=== PATIENT | male | born 1965 | race Caucasian/White ===

== ENCOUNTER 2016-05-06 19:03 | Inpatient (IN) | payer OTHER ==
[~2016-05-06] VITALS: Ht 177.8 cm; Wt 112.7 kg
[~2016-05-06 19:03] MED LIST: ALPR1TAB3 PO; CAND4 PO; CIPR500T2 PO
[2016-05-06 19:05] VITALS: BP 117/72; PULSE 82; RESP 16; TEMP 98; O2SAT 99
[2016-05-06] MEDS ORDERED: CAND4TAB PO (19:30)
[2016-05-06] MEDS ORDERED: SODIUM CHLORIDE 0.9% FLUSH 5 ML FLUSH IVF PRN (19:30)
[2016-05-06] MEDS ORDERED: ONDANSETRON HCL 4 MG/2 ML VIAL IVP ONE (19:30)
[2016-05-06] MEDS ORDERED: MORPHINE SULFATE 4 MG/ML INJ IV PUSH ONE (19:30)
[2016-05-06] MEDS ORDERED: HYDR25TA5 PO (19:30)
[2016-05-06] MEDS ORDERED: ALPR2TAB3 PO (19:30)
--- NOTE | 2016-05-06 19:37 | PD ---
HPI Chief Complaint: Injury Time Seen by Provider: 19:27 Travel History International Travel<30 days: No Contact w/Intl Traveler<30days: No Traveled to known affect area: No History of Present Illness HPI 51-year-old male presents to the emergency room for evaluation of right wrist pain and swelling after fall about one hour prior to arrival. Patient states he was doing "box jumps" which requires him to jump straight up in the air onto a box when he fell backwards landing on an outstretched wrist. He reports immediate pain. Patient has not taken anything for his symptoms. He went to an urgent care center but they were closed. He denies any other injuries including elbow pain. Denies hitting his head or loss of consciousness. Reports paresthesias in the right hand. History of hypertension and anxiety. Patient is requesting to see Dr. Arian Grossman. Last ate a sandwich 6 hours prior to arrival. Last drank water while in the waiting room. Primary care physician is Dr. Radha Stovall. [facility] Past Medical History Diminished Hearing: No Hypertension: Yes Insomnia: Yes Immunizations Current: Yes Past Surgical History Genitourinary Surgery: Yes (testicular torsion repair) Social History Alcohol Use: No Tobacco Use: No Substance Use: No Allergies-Medications (Allergen,Severity, Reaction): Coded Allergies: No Known Allergies (Verified , 05/06/16) Reported Meds & Prescriptions Reported Meds & Active Scripts Active Reported Hydrochlorothiazide 25 Mg Tab 25 Mg PO DAILY Candesartan (Candesartan Cilexetil) 4 Mg Tab 4 Mg PO DAILY Alprazolam 2 Mg Tab 2 Mg PO HS PRN Review of Systems Except as stated in HPI: all other systems reviewed are Neg Physical Exam Narrative GENERAL: Well-nourished, well-developed male in no acute distress. Afebrile. Ambulatory. SKIN: Warm and dry. Mild ecchymosis over the right third dorsal MCP joint. HEAD: Normocephalic. EYES: No scleral icterus. No injection or drainage. NECK: Supple, trachea midline. No JVD or lymphadenopathy. CARDIOVASCULAR: Regular rate and rhythm without murmurs, gallops, or rubs. RESPIRATORY: Breath sounds equal bilaterally. No accessory muscle use. EXTREMITY: Right wrist externally tender to palpation over the radial aspect. Mild tenderness over the volar, ulnar aspect. Limited range of motion secondary to pain. Moderate edema especially over the radial aspect. 2+ radial pulse and less than 2 second capillary refill distally. Patient can move his fingers reports significant pain with range of motion. Data Data Last Documented VS Vital Signs Date Time Temp Pulse Resp B/P Pulse Ox O2 Delivery O2 Flow Rate FiO2 05/06/16 19:21 Room Air 05/06/16 19:05 98.0 82 16 117/72 99 Orders Complete Blood Count With Diff (05/06/16 19:24) Comprehensive Metabolic Panel (05/06/16 19:24) Prothrombin Time / Inr (Pt) (05/06/16 19:24) Act Partial Throm Time (Ptt) (05/06/16 19:24) Iv Access Insert/Monitor (05/06/16 19:24) Morphine Inj (Morphine Inj) (05/06/16 19:30) Ondansetron Inj (Zofran Inj) (05/06/16 19:30) Sodium Chloride 0.9% Flush (Ns Flush) (05/06/16 19:30) Wrist, Complete (Atc6klb) (05/06/16 ) Hand, Limited (2vws) (05/06/16 ) Hydromorphone Pf Inj (Dilaudid Pf Inj) (05/06/16 20:45) Consult Orthopedic (05/06/16 ) Splint Or Brace Apply/Monitor (05/06/16 20:43) (Hub Use Only)Inp Phy Cons/Ref (05/06/16 ) Admit To Inpatient (05/06/16 ) Vital Signs (Adult) Q4H (05/06/16 20:51) Activity Oob With Assistance (05/06/16 20:51) Diet Npo (05/07/16 Breakfast) Sodium Chlor 0.9% 1000 Ml Inj (Ns 1000 M (05/06/16 20:51) Sodium Chloride 0.9% Flush (Ns Flush) (05/06/16 21:00) Sodium Chloride 0.9% Flush (Ns Flush) (05/06/16 21:00) Ondansetron Inj (Zofran Inj) (05/06/16 21:00) Bisacodyl Supp (Dulcolax Supp) (05/06/16 21:00) Comprehensive Metabolic Panel (05/07/16 06:00) Complete Blood Count With Diff (05/07/16 06:00) Scd Bilateral/Knee High OSCAR.BID (05/06/16 20:51) Hill Bilateral/Knee High OSCAR.QSHIFT (05/06/16 20:51) Acetaminophen (Tylenol) (05/06/16 21:00) Acetamin-Hydrocod 325-5 Mg ([place] 5-325 (05/06/16 21:00) Morphine Inj (Morphine Inj) (05/06/16 21:00) Inpatient Certification (05/06/16 ) Alprazolam (Xanax) (05/06/16 21:00) Hydrochlorothiazide (Hydrodiuril) (05/07/16 09:00) Losartan (Cozaar) (05/07/16 09:00) Admit Order (Ed Use Only) (05/06/16 20:57) Labs Laboratory Tests Test 05/06/16 20:10 White Blood Count 9.6 TH/MM3 Red Blood Count 5.08 MIL/MM3 Hemoglobin 15.8 GM/DL Hematocrit 44.3 % Mean Corpuscular Volume 87.2 FL Mean Corpuscular Hemoglobin 31.2 PG Mean Corpuscular Hemoglobin 35.8 % Concent Red Cell Distribution Width 12.9 % Platelet Count 265 TH/MM3 Mean Platelet Volume 8.3 FL Neutrophils (%) (Auto) 58.4 % Lymphocytes (%) (Auto) 27.3 % Monocytes (%) (Auto) 10.3 % Eosinophils (%) (Auto) 2.6 % Basophils (%) (Auto) 1.4 % Neutrophils # (Auto) 5.6 TH/MM3 Lymphocytes # (Auto) 2.6 TH/MM3 Monocytes # (Auto) 1.0 TH/MM3 Eosinophils # (Auto) 0.3 TH/MM3 Basophils # (Auto) 0.1 TH/MM3 CBC Comment DIFF FINAL Differential Comment Prothrombin Time 10.5 SEC Prothromb Time International 1.0 RATIO Ratio Activated Partial 20.5 SEC Thromboplast Time Sodium Level 135 MEQ/L Potassium Level 3.3 MEQ/L Chloride Level 100 MEQ/L Carbon Dioxide Level 26.5 MEQ/L Anion Gap 9 MEQ/L Blood Urea Nitrogen 19 MG/DL Creatinine 1.71 MG/DL Estimat Glomerular Filtration 42 ML/MIN Rate Random Glucose 109 MG/DL Calcium Level 9.3 MG/DL Total Bilirubin 1.6 MG/DL Aspartate Amino Transf 27 U/L (AST/SGOT) Alanine Aminotransferase 28 U/L (ALT/SGPT) Alkaline Phosphatase 50 U/L Total Protein 7.8 GM/DL Albumin 4.6 GM/DL [facility] Medical Decision Making Medical Screen Exam Complete: Yes Emergency Medical Condition: Yes Medical Record Reviewed: Yes Differential Diagnosis Fracture versus sprain versus strain versus dislocation Narrative Course 51-year-old male presents to the emergency room for evaluation of right wrist pain and swelling after falling backwards onto an outstretched arm just prior to arrival. Patient denies any other injuries. Physical exam reveals tenderness to palpation, mild edema over the right radial aspect. Neurovascularly intact with 2+ radial pulse and less than 2 second capillary refill distally. Limited range motion of the right wrist and hand secondary to pain. Patient can abduct his fingers and thumb and oppose his thumb but reports significant pain. Vital signs stable. IV access established and patient given morphine and Zofran for pain. States morphine mildly improved his symptoms. CBC is unremarkable. CMP shows evidence of dehydration. X-ray of the hand is negative. X-ray of the right wrist shows a comminuted distal radial fracture with joint involvement. I spoke to the orthopedic surgeon on- call, Dr. Ramon, who recommends admission to the medical service with consultation to him for surgical intervention tomorrow. Patient is to be nothing by mouth at midnight. Patient is agreeable. I spoke to the [facility] physician vice president investor relations, Dr. Cespedes, who agrees to admit this patient to her service. Physician Communication Physician Communication I spoke to the orthopedic surgeon on-call, Dr. Ramon, who recommends admission to medical service for surgical intervention tomorrow. I spoke to the hospitalist on-call, Dr. Cespedes, who agrees to accept this patient to her service. Diagnosis Primary Impression: Right wrist fracture Qualified Code: S62.101A - Right wrist fracture, closed, initial encounter Admitting Information Admitting Physician Requests: Admit Condition: Stable Genesis Huizar May 06, 2016 19:37
[2016-05-06 20:15] VITALS: BP 170/85; PULSE 89; RESP 20; TEMP 98.1; O2SAT 98
[2016-05-06] MEDS ORDERED: HYDROmorphone HCL PF 1 MG/ML VIAL IV PUSH ONE (20:45)
[2016-05-06 20:48] LABS: AUTOMATED NEUTROPHIL # 5.6 TH/MM3 (1.8-7.7); BASOPHIL # 0.1 TH/MM3 (0-0.2); BASOPHIL % 1.4 % (0.0-2.0); EOSINOPHIL # 0.3 TH/MM3 (0-0.4); EOSINOPHIL % 2.6 % (0.0-4.0); HEMATOCRIT 44.3 % (39.0-51.0); HEMO FLAGS DIFF FINAL; LYMPH % 27.3 % (9.0-44.0); LYMPHOCYTE # 2.6 TH/MM3 (1.0-4.8); MEAN CELL VOLUME 87.2 FL (80.0-100.0); MEAN CORPUSCULAR HEMOGLOBIN 31.2 PG (27.0-34.0); MEAN CORPUSCULAR HGB CONC 35.8 % (32.0-36.0); MONO % 10.3 % (0.0-8.0); NEUT % 58.4 % (16.0-70.0); PLATELET COUNT 265 TH/MM3 (150-450); RED BLOOD COUNT 5.08 MIL/MM3 (4.50-5.90); RED CELL DISTRIBUTION WIDTH 12.9 % (11.6-17.2); WHITE BLOOD COUNT 9.6 TH/MM3 (4.0-11.0)
--- NOTE | 2016-05-06 20:52 | HHI.HP ---
[facility] Primary Care Physician Kacey Mendes M.D. Admission Diagnosis Diagnoses: (1) Right wrist fracture Diagnosis: Principal (2) HTN (hypertension) Diagnosis: Principal (3) Anxiety Diagnosis: Principal (4) JONATHAN (acute kidney injury) Diagnosis: Principal Travel History International Travel<30 Days: No Contact w/Intl Traveler <30 Da: No Traveled to Known Affected Are: No History of Present Illness This is a 51-year-old male with PMH of HTN and Anxiety who presents to ER with complaints of right hand pain and swelling after a fall while doing exercise. Was doing CrossFit exercises and jumped onto a box when he fell onto outstretched arm. Denies LOC or head trauma. On arrival, BP 117/72, HR 82, O2 sat 99% on RA, Afebrile. CBC unremarkable. Creatinine 1.71, previously 1.3 on 01/23/05. K+ 3.3. Hand X-ray w/ distal radius fx. Dr. Ramon consulted by ER physician, plan for surgical intervention. Review of Systems Other ROS: 14 point review of systems otherwise negative. Past Family Social History Past Medical History PMH: HTN and Anxiety Past Surgical History PAST SURGICAL HISTORY: Testicular Torsion Repair Allergies: Coded Allergies: No Known Allergies (Verified , 05/06/16) Family History PAST FAMILY HISTORY: Reviewed. No h/o DM or CAD Social History PAST SOCIAL HISTORY: Negative for alcohol, tobacco or drugs. Physical Exam Vital Signs Vital Signs Date Time Temp Pulse Resp B/P Pulse Ox O2 Delivery O2 Flow Rate FiO2 05/06/16 19:21 Room Air 05/06/16 19:05 98.0 82 16 117/72 99 Physical Exam PE: GENERAL: Middle-aged white male in no acute distress. HEENT: PERRLA, EOMI. No scleral icterus or conjunctival pallor. No lid lag or facial droop. CARDIOVASCULAR: Regular rate and rhythm. No obvious murmurs to auscultation. No chest tenderness to palpation. RESPIRATORY: No obvious rhonchi or wheezing. Clear to auscultation. Breath sounds equal bilaterally. GASTROINTESTINAL: Abdomen soft, non-tender, nondistended. BS normal. MUSCULOSKELETAL: Right wrist w/ decreased ROM due to injury. Pulses intact. NEUROLOGICAL: Awake, alert and oriented x4. No focal neurologic deficits. Moving both upper and lower extremities spontaneously. Laboratory Laboratory Tests Test 05/06/16 20:10 White Blood Count 9.6 Red Blood Count 5.08 Hemoglobin 15.8 Hematocrit 44.3 Mean Corpuscular Volume 87.2 Mean Corpuscular Hemoglobin 31.2 Mean Corpuscular Hemoglobin 35.8 Concent Red Cell Distribution Width 12.9 Platelet Count 265 Mean Platelet Volume 8.3 Neutrophils (%) (Auto) 58.4 Lymphocytes (%) (Auto) 27.3 Monocytes (%) (Auto) 10.3 Eosinophils (%) (Auto) 2.6 Basophils (%) (Auto) 1.4 Neutrophils # (Auto) 5.6 Lymphocytes # (Auto) 2.6 Monocytes # (Auto) 1.0 Eosinophils # (Auto) 0.3 Basophils # (Auto) 0.1 CBC Comment DIFF FINAL Differential Comment Result Diagram: 05/06/162009 Assessment and Plan Problem List: (1) Right wrist fracture ICD Code: S62.101A Status: Acute (2) Anxiety ICD Code: F41.9 Status: Acute (3) JONATHAN (acute kidney injury) ICD Code: N17.9 Status: Acute (4) HTN (hypertension) ICD Code: I10 Status: Acute Assessment and Plan A/P: 1. Right Wrist Fx: s/p mechanical fall, no head trauma or LOC. X-ray w/ distal radius fracture, images reviewed by me. Dr. Ramon consulted by ER physician, plan for surgical intervention in am. NPO, IVF, analgesics/ antiemetics. 2. Anxiety: Severe. Resume home Xanax. 3. JONATHAN: Creatinine 1.71, previously 1.3 on 01/23/05, presumably new but no labs since 2004. Check U/a, IVF, repeat labs in am. 4. HTN: Controlled. BP 120's. Will monitor. 5. DVT Prophylaxis: Anticoagulation post op per Ortho. 6. Social work for d/c planning as needed. 7. Case discussed w/ ER physician at length. Physician Certification 2 Midnight Certification Type: Admission for Inpatient Services Order for Inpatient Services The services are ordered in accordance with Medicare regulations or non- Medicare payer requirements, as applicable. In the case of services not specified as inpatient-only, they are appropriately provided as inpatient services in accordance with the 2-midnight benchmark. Estimated LOS (days): 2 days is the estimated time the patient will need to remain in the hospital, assuming treatment plan goals are met and no additional complications. Post-Hospital Plan: Not yet determined Problem Qualifiers (1) Right wrist fracture: Qualified Code: S62.101A - Right wrist fracture, closed, initial encounter Keila Cespedes MD May 06, 2016 20:52
[2016-05-06 20:55] LABS: PROTHROMBIN TIME - PATIENT 10.5 SEC (9.8-11.6)
[2016-05-06 20:59] LABS: APTT (PATIENT) 20.5 SEC (24.3-30.1)
[2016-05-06] MEDS ORDERED: ACETAMINOPHEN 325 MG TAB PO PRN (21:00)
[2016-05-06] MEDS ORDERED: ONDANSETRON HCL 4 MG/2 ML VIAL IVP PRN (21:00)
[2016-05-06] MEDS ORDERED: SODIUM CHLORIDE 0.9% FLUSH 5 ML FLUSH FLUSH PRN (21:00)
[2016-05-06] MEDS ORDERED: ACETAMINOPHEN/HYDROcodone 325 MG/5 MG TAB PO PRN (21:00)
[2016-05-06] MEDS ORDERED: BISACODYL 10 MG SUPP PR PRN (21:00)
[2016-05-06 21:02] LABS: ANION GAP 9 MEQ/L (5-15); AST (GOT) 27 U/L (15-37); BICARBONATE 26.5 MEQ/L (21.0-32.0); BLOOD UREA NITROGEN 19 MG/DL (7-18); CHLORIDE 100 MEQ/L (98-107); GLOMERULAR FILTRATION RATE 42 ML/MIN (>89); POTASSIUM 3.3 MEQ/L (3.5-5.1); SODIUM (NA) 135 MEQ/L (136-145)
[2016-05-06 21:05] LABS: ALKALINE PHOSPHATASE 50 U/L (45-117); ALT (GPT) 28 U/L (12-78); TOTAL BILIRUBIN ADULT 1.6 MG/DL (0.2-1.0)
[2016-05-06] MEDS: SODIUM CHLOR 0.9% 1000 ML INJ 1,000 ML IV SCH (21:11)
[2016-05-06] MEDS: SODIUM CHLORIDE 0.9% FLUSH 5 ML FLUSH FLUSH SCH (21:11)
--- NOTE | 2016-05-06 21:31 | RADRPT ---
EXAM DATE/TIME: 05/06/2016 20:08 [facility] COMPARISON: No previous studies available for comparison. INDICATIONS : Right wrist pain MEDICAL HISTORY : None. SURGICAL HISTORY : None. ENCOUNTER: Initial ACUITY: 1 day PAIN SCORE: 10/10 LOCATION: Right wrist FINDINGS: There is a comminuted intra-articular fracture of the distal radius with some foreshortening. Distal ulna intact. No dislocation. CONCLUSION: 1. Comminuted intra-articular fracture distal radius with foreshortening. Monico Martinez MD on May 06, 2016 at 21:29 Board Certified Radiologist. This report was verified electronically.
--- NOTE | 2016-05-06 21:32 | RADRPT ---
EXAM DATE/TIME: 05/06/2016 20:10 [facility] COMPARISON: No previous studies available for comparison. INDICATIONS : Right wrist pain MEDICAL HISTORY : None. SURGICAL HISTORY : None. ENCOUNTER: Initial ACUITY: 1 day PAIN SCORE: 10/10 LOCATION: Right upper extremity FINDINGS: There is a comminuted intra-articular fracture of the distal radius with foreshortening. No dislocati on at the wrist. No acute fracture of the right hand. CONCLUSION: 1. Distal radius fracture. No right hand fracture identified. Monico Martinez MD on May 06, 2016 at 21:30 Board Certified Radiologist. This report was verified electronically.
[2016-05-06] MEDS: LACTATED RINGER'S 1000 ML IV SCH (23:00)
[2016-05-06] MEDS: SODIUM CHLORID 0.9% 500 ML IV SCH (23:00)
[2016-05-06] MEDS ORDERED: INSULIN HUMAN REGULAR 1,000 UNITS/10 ML VIAL SQ PRN (23:00)
[2016-05-06] MEDS ORDERED: METOPROLOL TARTRATE 25 MG TAB PO PRN (23:00)
[2016-05-06] MEDS ORDERED: LOSARTAN 25 MG TAB PO ONE (23:15)
[2016-05-06] MEDS ORDERED: HYDROCHLOROTHIAZIDE 25 MG TAB PO ONE (23:15)
[2016-05-06] MEDS: ALPRAZolam 1 MG TAB PO PRN (23:20)
[2016-05-07] VITALS (7 sets, daily range): BP systolic 129–155; BP diastolic 83–95; PULSE 71–96; RESP 17–18; TEMP 95.8–98.7; O2SAT 96–99
[2016-05-07] MEDS: MORPHINE SULFATE 4 MG/ML INJ IV PRN ×4 (01:18→11:03)
[2016-05-07] MEDS: SODIUM CHLOR 0.9% 1000 ML INJ 1,000 ML IV SCH ×2 (05:28→15:49)
[2016-05-07 08:03] LABS: AUTOMATED NEUTROPHIL # 8.4 TH/MM3 (1.8-7.7); BASOPHIL # 0.1 TH/MM3 (0-0.2); BASOPHIL % 0.7 % (0.0-2.0); EOSINOPHIL # 0.2 TH/MM3 (0-0.4); EOSINOPHIL % 1.6 % (0.0-4.0); HEMO FLAGS DIFF FINAL; LYMPH % 10.7 % (9.0-44.0); LYMPHOCYTE # 1.2 TH/MM3 (1.0-4.8); MEAN CELL VOLUME 86.9 FL (80.0-100.0); MEAN CORPUSCULAR HEMOGLOBIN 31.1 PG (27.0-34.0); MEAN CORPUSCULAR HGB CONC 35.8 % (32.0-36.0); MONO % 9.9 % (0.0-8.0); NEUT % 77.1 % (16.0-70.0); PLATELET COUNT 231 TH/MM3 (150-450); RED BLOOD COUNT 4.61 MIL/MM3 (4.50-5.90); WHITE BLOOD COUNT 10.9 TH/MM3 (4.0-11.0)
[2016-05-07] MEDS: SODIUM CHLORID 0.9% 500 ML IV SCH (08:37)
[2016-05-07] MEDS: SODIUM CHLORIDE 0.9% FLUSH 5 ML FLUSH FLUSH SCH (08:37)
[2016-05-07 08:39] LABS: ALKALINE PHOSPHATASE 47 U/L (45-117); ALT (GPT) 26 U/L (12-78); ANION GAP 9 MEQ/L (5-15); AST (GOT) 20 U/L (15-37); BICARBONATE 23.9 MEQ/L (21.0-32.0); BLOOD UREA NITROGEN 20 MG/DL (7-18); CHLORIDE 104 MEQ/L (98-107); GLOMERULAR FILTRATION RATE 55 ML/MIN (>89); POTASSIUM 3.3 MEQ/L (3.5-5.1); SODIUM (NA) 137 MEQ/L (136-145); TOTAL BILIRUBIN ADULT 1.2 MG/DL (0.2-1.0)
[2016-05-07] MEDS ORDERED: LOSARTAN 25 MG TAB PO SCH ×2 (09:00→21:00)
[2016-05-07] MEDS ORDERED: HYDROCHLOROTHIAZIDE 25 MG TAB PO SCH ×2 (09:00→21:00)
--- NOTE | 2016-05-07 10:30 | MB ---
cc: ELIANA FLEMING M.D. DATE OF CONSULTATION: May 07, 2016 REASON FOR CONSULTATION Right wrist fracture. HISTORY OF PRESENT ILLNESS The patient is a 51-year-old man who has history of hypertension and anxiety. The patient was doing some cross-fit exercises where he was doing a box jump, he missed the box jump, he was doing this with his son. He landed onto the bilateral wrist with the right wrist being much worse. Initially when he first came into the hospital he was only complaining about right wrist pain but now he is having some left wrist pain as well. He does have some numbness about the fingers of the right hand which is on and off and mostly about the long finger. The patient was found to have a significantly displaced distal radius fracture on the right side. He was splinted and admitted to the hospital. He denies any problems with the wrist in the past. He describes the pain was being quite significant. PAST MEDICAL HISTORY The patient's medical history is as above. PAST SURGICAL HISTORY Testicular torsion repair. ALLERGIES NO KNOWN DRUG ALLERGIES. FAMILY HISTORY Noncontributory. SOCIAL HISTORY The patient does not drink alcohol or smoke. 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 ___ specific questions surrounding that. PHYSICAL EXAMINATION VITAL SIGNS: The patient's temperature is 98.0, pulse is 82, respirations 16, blood pressure 117/72. GENERAL: He is awake, alert and oriented x3. He has normal affect, insight and judgment. He is in no significant amount of distress. HEENT/NECK: Head is atraumatic. Neck is supple. Oropharynx is moist. Extraocular muscles are intact. HEART: Regular rate and rhythm. LUNGS: Clear to auscultation bilaterally. ABDOMEN: Soft, nontender, nondistended. EXTREMITIES: The right upper extremity is currently splinted. He has some swelling about the fingertips, although he can move the fingers at least moderately well. He does have some numbness in the median nerve distribution, mostly around the long finger but a little bit about the index finger as well. There is no bloody drainage on the splint. Examination of the left wrist shows skin is intact with no wounds. I did see significant swelling. There is no tenderness about the distal radius, but he has quite a bit of tenderness about the mid carpus region. His range of motion of the wrist was mildly decreased passively and there was sensation distally. Examination of bilateral lower extremities shows good active motion, neurovascularly intact. LABORATORY STUDIES Reviewed shows white cell count of 9.6, hematocrit is 44.3, platelets is 265. Coagulation studies INR is 1.0. Chemistries creatinine is 1.37, down from 1.71. X-RAYS Imaging and report is reviewed from the hand and the wrist on the right side, shows comminuted interarticular distal radius fracture with impaction, displacement and angulation, fracture is fairly distal. No x-rays of the left wrist were obtained. IMPRESSION 1. Right distal radius fracture, interarticular displaced, angulated, comminuted and impacted. 2. Right hand carpal tunnel syndrome, acute. 3. Left wrist sprain, rule out fractures. As for the left wrist is concerned, I have asked the nurse to order an x-ray of the wrist so we can review this. As for the right wrist, is a highly complex situation. The patient has severe injury to the distal radius. Nonoperative management likely will lead to significant dysfunction of the wrist due to deformity and interarticular component. The patient does have significant chance of developing arthritic change, weakness of the wrist and long-term complications of the extremities. We did discuss operative management for this condition to include open reduction, internal fixation and/or external fixation given the distal nature of it. We talked about future surgical necessity of external fixation is performed. Additionally, the patient does have evidence of acute carpal tunnel syndrome. I would recommend an acute carpal tunnel release and there are risks associated with injury to the median nerve with this. He understands the general risks of surgery to include but not limited to injury to nerves, blood vessels, bleeding, infection, failure of hardware, need for operation, continued pain, loss of range of motion of the associated joints, DVT, pulmonary embolus, pneumonia and . All questions have been answered. MD ADRYAN Cristina/FLY /9:29 AM /10:09 AM
--- NOTE | 2016-05-07 11:47 | EKG ---
Date Performed: 05/07/2016 Time Performed: 09:48:53 PTAGE: 51 years EKG: Sinus rhythm POSSIBLE LEFT VENTRICULAR HYPERTROPHY NONSPECIFIC T-WAVE ABNORMALITY ABNORMAL ECG NO PREVIOUS TRACING DOCTOR: Reanna Talavera Interpretating Date/Time 05/07/2016 11:45:40
[2016-05-07] MEDS ORDERED: BUPIVACAINE HCL PF 0.25% 30 ML VIAL ONE (12:08)
[2016-05-07] MEDS ORDERED: LIDOCAINE HCL 1% 50 ML VIAL ONE (12:08)
[2016-05-07] MEDS ORDERED: GENTAMICIN SULFATE 80 MG/2 ML VIAL ONE (12:09)
[2016-05-07] MEDS ORDERED: POTASSIUM CHLORIDE 10 MEQ CONTROLLED RELEASE TAB PO ONE (12:30)
[2016-05-07] MEDS ORDERED: fentaNYL CITRATE 250 MCG/5 ML AMP ONE (12:51)
[2016-05-07] MEDS ORDERED: ACETAMINOPHEN 1000 MG/100 ML VIAL IV ONE (12:51)
[2016-05-07] MEDS ORDERED: HYDROmorphone HCL PF 2 MG/ML VIAL ONE (12:51)
[2016-05-07] MEDS ORDERED: VANCOMYCIN HCL 1000 MG VIAL ONE (12:57)
--- NOTE | 2016-05-07 13:12 | RADRPT ---
EXAM DATE/TIME: 05/07/2016 09:27 [facility] COMPARISON: No previous studies available for comparison. INDICATIONS : Pain from fall backwards. MEDICAL HISTORY : None. SURGICAL HISTORY : None. ENCOUNTER: Initial ACUITY: 2 days PAIN SCORE: 5/10 LOCATION: Left wrist. FINDINGS: Three view examination of the left wrist demonstrates no soft tissue swelling, dislocation, or fractu re. Tiny chip fracture along the scaphoid of indeterminate age The carpal bones are in normal alignme nt. The joint spaces are maintained. Bony mineralization is normal. CONCLUSION: Distal radius and ulna are intact. Chip fracture of the scaphoid of indeterminate age. Ivan Jacome MD on May 07, 2016 at 13:09 Board Certified Radiologist. This report was verified electronically.
[2016-05-07] MEDS ORDERED: BUPIVACAINE/EPINEPHRINE 0.25% PF 30 ML VIAL ONE (13:23)
--- NOTE | 2016-05-07 14:10 | PD.OP ---
cc: Pavel Ramon MD Operative Report Date of Surgery: May 07, 2016 Preoperative Diagnosis: Right wrist distal radius fracture, intra-articular three-part displaced. Right hand acute carpal tunnel syndrome. Left nondisplaced scaphoid fracture. Postoperative Diagnosis: Same Procedure: Right distal radius fracture open reduction and internal fixation of three-part intra-articular fracture. Right hand open carpal tunnel release through separate incision. Nonoperative management of left scaphoid fracture. Surgeon: Pavel Ramon Vault Clerk(s): JUSTINA Moss The surgical procedure was assisted by my Advanced Registered Nurse Practitioner. My CAREER COORDINATOR presence was necessary throughout this case for the manipulation and positioning of the surgical extremity. My CAREER COORDINATOR was assisting me throughout the duration of this procedure. The skill set of an Advance Registered Nurse Practitioner was medically necessary to complete this procedure. During the surgical case, the apprentice instrument technician was working at the back table and the Advance Registered Nurse Practitioner was directly assisting me. Operation and Findings: Prior to the patient being brought back to the operative theater I reviewed the x-rays of the left wrist which shows a nondisplaced transverse scaphoid fracture. The radiologist read this as a chip fracture. However, I do believe there is a transverse nondisplaced component to this. I reviewed the x-rays with the patient. We are going to move forward with nonoperative management. The patient will be splinted as soon as he is in the recovery room. Tourniquet time: 29 minutes at 250 mmHg of pressure Estimated blood loss: 40 cc The patient received intravenous Ancef and vancomycin. After the appropriate anesthesia was administered, the patient's arm was prepped and draped in the usual sterile fashion. Local anesthetic was given, and the arm was exsanguinated. The tourniquet was raised to 250 mmHg of pressure. We made a standard incision over the volar aspect of the forearm. We then dissected through the flexor carpi radialis sub- sheath. The pronator quadratus was reflected. We now visualized the distal radius fracture very well. The fracture was anatomically reduced both visually and via fluoroscopy. We provisionally held the fracture reduced and then applied a Synthes precontoured distal radius plate into the appropriate position. The plate was secured to the distal radius first with the sliding screw hole. This was then followed by locking screws distally and proximally. We took final fluoroscopic imaging of the wrist. We found no intra-articular penetration of the screws. The patient had full range of motion of the wrist with no crepitus. We made a separate incision on the volar aspect of the hand. Dissected down to the deep transverse carpal ligament. We incised the ligament first in the mid aspect and then distally and then proximally. We confirmed the entire ligament was transected. We saw a small amount of hematoma at the proximal end of the carpal tunnel along the course of the median nerve. The median nerve was intact. The tourniquet was released and hemostasis was achieved. The patient had a 2+ radial pulse. We irrigated the incisions thoroughly. We then closed skin with 2-0 Vicryl followed by 3-0 nylon. The arm was dressed and a volar splint was applied. The postoperative plan is to start early range of motion of the wrist. Pavel Ramon MD May 07, 2016 14:10
[2016-05-07] MEDS ORDERED: HYDR-3366 PO (14:11)
[2016-05-07] MEDS ORDERED: NALOXONE HCL 0.4 MG/ML AMP IV PRN (14:15)
[2016-05-07] MEDS ORDERED: SODIUM CHLORIDE 0.9% FLUSH 5 ML FLUSH IVF PRN (14:15)
[2016-05-07] MEDS ORDERED: diphenhydrAMINE HCL 25 MG CAP PO PRN (14:15)
[2016-05-07] MEDS ORDERED: MISCELLANEOUS PHARMACY INFORMATION XX ONE (14:15)
[2016-05-07] MEDS ORDERED: MISCELLANEOUS NURSING INFORMATION XX PRN (14:15)
[2016-05-07] MEDS ORDERED: ACETAMINOPHEN/HYDROcodone 325 MG/10 MG TAB PO PRN (14:15)
[2016-05-07] MEDS ORDERED: MAGNESIUM HYDROXIDE SUSP 30 ML CUP PO PRN (14:15)
[2016-05-07] MEDS ORDERED: MORPHINE SULFATE 4 MG/ML INJ IV PUSH PRN (14:15)
[2016-05-07] MEDS ORDERED: Post-op Orders (for Pharmacy) MISC XX ONE (14:15)
[2016-05-07] MEDS ORDERED: ONDANSETRON HCL 4 MG/2 ML VIAL IVP PRN (14:15)
[2016-05-07] MEDS ORDERED: DO NOT ADM ANY ANTICOAGULANT DRUGS XX PRN (14:30)
[2016-05-07] MEDS ORDERED: ONDANSETRON HCL 4 MG/2 ML VIAL IV PUSH ONE (14:31)
[2016-05-07] MEDS ORDERED: PROPOFOL 200 MG/20 ML AMP IV ONE (14:31)
[2016-05-07] MEDS ORDERED: ePHEDrine/NS 25 MG/5 ML SYR IV ONE (14:31)
[2016-05-07] MEDS: DEXT 5%-NACL 0.45% 1000 ML INJ 1,000 ML IV SCH (15:00)
--- NOTE | 2016-05-07 15:18 | RADRPT ---
EXAM DATE/TIME: 05/07/2016 13:47 [facility] COMPARISON: No previous studies available for comparison. INDICATIONS : Open reduction. MEDICAL HISTORY : None. SURGICAL HISTORY : None. ENCOUNTER: Subsequent ACUITY: 2 days PAIN SCORE: Non-responsive. LOCATION: Right upper extremity FINDINGS: Two view examination of the right wrist demonstrates plate and screw fixation of a distal radius frac ture. No complications identified. No dislocation. CONCLUSION: 1. Plate and screw fixation of the distal radius and Monico Martinez MD on May 07, 2016 at 15:15 Board Certified Radiologist. This report was verified electronically.
[2016-05-07] MEDS: ACETAMINOPHEN/HYDROcodone 325 MG/10 MG TAB PO PRN ×2 (16:13→22:33)
[2016-05-07 17:01] LABS: AUTOMATED NEUTROPHIL # 8.8 TH/MM3 (1.8-7.7); BASOPHIL # 0.1 TH/MM3 (0-0.2); BASOPHIL % 0.7 % (0.0-2.0); EOSINOPHIL # 0.1 TH/MM3 (0-0.4); EOSINOPHIL % 0.6 % (0.0-4.0); HEMATOCRIT 39.2 % (39.0-51.0); HEMO FLAGS DIFF FINAL; LYMPH % 7.9 % (9.0-44.0); LYMPHOCYTE # 0.8 TH/MM3 (1.0-4.8); MEAN CELL VOLUME 88.1 FL (80.0-100.0); MEAN CORPUSCULAR HEMOGLOBIN 31.5 PG (27.0-34.0); MEAN CORPUSCULAR HGB CONC 35.8 % (32.0-36.0); MONO % 3.6 % (0.0-8.0); NEUT % 87.2 % (16.0-70.0); PLATELET COUNT 206 TH/MM3 (150-450); RED BLOOD COUNT 4.45 MIL/MM3 (4.50-5.90); RED CELL DISTRIBUTION WIDTH 13.1 % (11.6-17.2); WHITE BLOOD COUNT 10.1 TH/MM3 (4.0-11.0)
--- NOTE | 2016-05-07 17:09 | HHI.PR ---
Subjective Remarks Patient seen this afternoon after surgery. Patient says he feels well. Denies any chest pain or shortness breath. Denies any nausea or vomiting. Denies any constipation. Reports the pain is under control. Objective Vital Signs Date Time Temp Pulse Resp B/P Pulse Ox O2 Delivery O2 Flow Rate FiO2 05/07/16 16:11 95.8 71 18 143/95 99 05/07/16 15:40 98.3 69 18 146/91 96 Nasal Cannula 2 05/07/16 15:30 69 18 146/91 96 Nasal Cannula 2 05/07/16 15:15 66 18 141/91 94 Nasal Cannula 2 05/07/16 15:00 71 18 148/92 96 Nasal Cannula 2 05/07/16 14:45 79 18 144/90 96 Nasal Cannula 2 05/07/16 14:30 98.3 79 18 147/92 96 Nasal Cannula 2 05/07/16 12:00 97.7 77 18 145/91 98 05/07/16 08:00 98.1 74 18 147/89 97 05/07/16 01:30 129/84 05/07/16 00:01 98.7 96 18 155/93 98 05/06/16 19:21 Room Air 05/06/16 19:05 98.0 82 16 117/72 99 I/O 05/06/16 05/06/16 05/06/16 05/07/16 05/07/16 05/07/16 07:00 15:00 23:00 07:00 15:00 23:00 Intake Total 547 ml 600 ml 90 ml Output Total 50 ml Balance 547 ml 550 ml 90 ml Intake Oral 120 ml IV Total 427 ml 90 ml Other 600 ml Output Estimated Blood Loss 50 ml # Voids 1 # Bowel Movements 0 Result Diagram: 05/07/16 1623 05/07/16 0658 Imaging Last Impressions Wrist X-Ray 05/07/16 0000 Signed Impressions: Service Date/Time: Saturday, May 07, 2016 13:47 - CONCLUSION: 1. Plate and screw fixation of the distal radius and Monico Martinez MD Hand X-Ray 05/06/16 0000 Signed Impressions: Service Date/Time: Friday, May 06, 2016 20:10 - CONCLUSION: 1. Distal radius fracture. No right hand fracture identified. Monico Martinez MD Objective Remarks GENERAL: Patient sitting up in bed. Appears comfortable. Alert and oriented 3. SKIN: Warm and dry. HEAD: Normocephalic. EYES: No scleral icterus. No injection or drainage. NECK: Supple, trachea midline. No JVD or lymphadenopathy. CARDIOVASCULAR: Regular rate and rhythm without murmurs, gallops, or rubs. RESPIRATORY: Breath sounds equal bilaterally. No accessory muscle use. GASTROINTESTINAL: Abdomen soft, non-tender, nondistended. MUSCULOSKELETAL: No cyanosis, or edema. Bilateral hands dressed. Peripheral perfusion intact. BACK: Nontender without obvious deformity. No CVA tenderness. A/P Assessment and Plan //Postoperative ORIF distal radial fracture with joint involvement. -Bilateral hands injured. -Following fall backwards after box jump. No other injuries. -Appreciate surgical assistance. Postoperative management as per surgical service - And coagulation as per surgical service Pain management as per surgical service Await return of bowel function. Hypokalemia. Acute. Mild. Replaced. Hypertension. Blood pressure acceptable. Continue candesartan. Continue hydrochlorothiazide. Continue to monitor blood pressure. Possible acute kidney injury. Creatinine 1.7 on admission. Improving. Continue to monitor. Prophylaxis. As per surgical service. Discharge Planning When cleared by orthopedics. Chauncey Bourgeois MD May 07, 2016 17:09
[2016-05-07] MEDS: DOCUSATE SODIUM 50 MG/SENNA 8.6 MG TAB PO SCH (22:32)
[2016-05-07] MEDS: SODIUM CHLORIDE 0.9% FLUSH 5 ML FLUSH IVF SCH (22:34)
[2016-05-07] MEDS: ALPRAZolam 1 MG TAB PO PRN (22:39)
[2016-05-07] MEDS: LACTATED RINGER'S 1000 ML IV SCH (23:00)
[2016-05-08 00:15] VITALS: BP 130/72; PULSE 88; RESP 17; TEMP 97.9; O2SAT 97
[2016-05-08] MEDS: DEXT 5%-NACL 0.45% 1000 ML INJ 1,000 ML IV SCH ×2 (02:57→11:00)
[2016-05-08 04:05] VITALS: BP 142/77; PULSE 80; RESP 17; TEMP 96.9; O2SAT 96
[2016-05-08] MEDS: ACETAMINOPHEN/HYDROcodone 325 MG/10 MG TAB PO PRN ×2 (04:51→11:31)
[2016-05-08 06:01] LABS: AUTOMATED NEUTROPHIL # 8.5 TH/MM3 (1.8-7.7); BASOPHIL # 0.1 TH/MM3 (0-0.2); BASOPHIL % 0.5 % (0.0-2.0); EOSINOPHIL # 0.1 TH/MM3 (0-0.4); EOSINOPHIL % 1.1 % (0.0-4.0); HEMATOCRIT 35.7 % (39.0-51.0); HEMO FLAGS DIFF FINAL; LYMPH % 15.5 % (9.0-44.0); LYMPHOCYTE # 1.8 TH/MM3 (1.0-4.8); MEAN CELL VOLUME 87.4 FL (80.0-100.0); MEAN CORPUSCULAR HEMOGLOBIN 31.3 PG (27.0-34.0); MEAN CORPUSCULAR HGB CONC 35.8 % (32.0-36.0); MONO % 10.6 % (0.0-8.0); NEUT % 72.3 % (16.0-70.0); PLATELET COUNT 205 TH/MM3 (150-450); RED BLOOD COUNT 4.09 MIL/MM3 (4.50-5.90); RED CELL DISTRIBUTION WIDTH 12.7 % (11.6-17.2); WHITE BLOOD COUNT 11.8 TH/MM3 (4.0-11.0)
[2016-05-08 06:29] LABS: BICARBONATE 24.6 MEQ/L (21.0-32.0); POTASSIUM 3.5 MEQ/L (3.5-5.1)
[2016-05-08 08:00] VITALS: BP 149/95; PULSE 67; RESP 18; TEMP 96.5; O2SAT 97
[2016-05-08] MEDS ORDERED: MULTIVITAMINS/MINERALS THERAPEUTIC TAB PO SCH (09:00)
[2016-05-08] MEDS: DOCUSATE SODIUM 50 MG/SENNA 8.6 MG TAB PO SCH (09:05)
[2016-05-08] MEDS: SODIUM CHLORIDE 0.9% FLUSH 5 ML FLUSH IVF SCH (09:06)
[2016-05-08 12:00] VITALS: BP 148/96; PULSE 70; RESP 18; TEMP 96.6; O2SAT 97
--- NOTE | 2016-05-08 12:26 | PD.ORT.PN ---
Subjective Post Op Day #: 1 Subjective Remarks Patient reports overall decrease in pain to the right wrist since surgery. Patient has decreased tingling and numbness about the right fingers but still has some mild numbness about the right thumb. The patient notes minimal pain to the left hand. Patient is anxious for discharge home today. Patient had questions about work and driving which I addressed. Objective Vitals Vital Signs Date Time Temp Pulse Resp B/P Pulse Ox O2 Delivery O2 Flow Rate FiO2 05/08/16 08:00 96.5 67 18 149/95 97 05/08/16 04:05 96.9 80 17 142/77 96 05/08/16 00:15 97.9 88 17 130/72 97 05/07/16 21:30 21 05/07/16 20:00 98.1 95 17 146/83 96 05/07/16 16:11 95.8 71 18 143/95 99 05/07/16 15:40 98.3 69 18 146/91 96 Nasal Cannula 2 05/07/16 15:30 97 Nasal Cannula 2.00 05/07/16 15:30 69 18 146/91 96 Nasal Cannula 2 05/07/16 15:15 66 18 141/91 94 Nasal Cannula 2 05/07/16 15:00 71 18 148/92 96 Nasal Cannula 2 05/07/16 14:45 79 18 144/90 96 Nasal Cannula 2 05/07/16 14:30 98.3 79 18 147/92 96 Nasal Cannula 2 I/O 05/07/16 05/07/16 05/07/16 05/08/16 05/08/16 05/08/16 07:00 15:00 23:00 07:00 15:00 23:00 Intake Total 547 ml 600 ml 1197 ml 1100 ml Output Total 50 ml 800 ml Balance 547 ml 550 ml 1197 ml 300 ml Intake Oral 120 ml 480 ml 480 ml IV Total 427 ml 717 ml 620 ml Other 600 ml Output Urine Total 800 ml Estimated Blood Loss 50 ml # Voids 1 3 1 # Bowel Movements 0 0 0 0 Result Diagram: 05/08/16 0540 05/08/16 0540 Procedures Right distal radius fracture open reduction and internal fixation of three-part intra-articular fracture. Right hand open carpal tunnel release through separate incision. Nonoperative management of left scaphoid fracture. Objective Remarks Right UE Splint is C/D/I. Patient moves all fingers and thumb with good sensation to light touch. There is some mild numbness to the right thumb. BCR X 5. Mild swelling to fingers. Left UE Splint is C/D/I. Patient moves all fingers and thumb with good sensation to light touch. BCR X 5. No swelling to fingers. Assessment & Plan Ortho Post Op Day #: 1 Problem List: Assessment and Plan POD #1: Right distal radius fracture open reduction and internal fixation of three-part intra-articular fracture. Right hand open carpal tunnel release through separate incision. Nonoperative management of left scaphoid fracture. 1. Maintain splints to bilateral wrists 2. Ice to the bilateral wrist PRN 3. Stable for discharge home today per ortho once medically cleared 4. F/U with Dr. Ramon in 1 week. Yovani Walker May 08, 2016 12:26
[2016-05-08] MEDS: SODIUM CHLOR 0.9% 1000 ML INJ 1,000 ML IV SCH (12:51)
[2016-05-08 13:20] VITALS: O2SAT 94
--- NOTE | 2016-05-23 17:22 | HHI.DS ---
Discharge Summary Admission Date May 06, 2016 at 21:01 Discharge Date: May 08, 2016 Admitting Diagnosis (1) Right wrist fracture ICD Code: S62.101A (2) Anxiety ICD Code: F41.9 (3) JONATHAN (acute kidney injury) ICD Code: N17.9 (4) HTN (hypertension) ICD Code: I10 Procedures ORIF distal radial fracture. please see orthopedic surgical report. Brief History - From Admission This is a 51-year-old male with PMH of HTN and Anxiety who presents to ER with complaints of right hand pain and swelling after a fall while doing exercise. Was doing [employer] exercises and jumped onto a box when he fell onto outstretched arm. Denies LOC or head trauma. On arrival, BP 117/72, HR 82, O2 sat 99% on RA, Afebrile. CBC unremarkable. Creatinine 1.71, previously 1.3 on 01/23/05. K+ 3.3. Hand X-ray w/ distal radius fx. Dr. Ramon consulted by ER physician, plan for surgical intervention. Imaging Last Impressions Wrist X-Ray 05/07/16 0000 Signed Impressions: Service Date/Time: Saturday, May 07, 2016 13:47 - CONCLUSION: 1. Plate and screw fixation of the distal radius and Monico Martinez MD Hand X-Ray 05/06/16 0000 Signed Impressions: Service Date/Time: Friday, May 06, 2016 20:10 - CONCLUSION: 1. Distal radius fracture. No right hand fracture identified. Monico Martinez MD PE at Discharge GENERAL: Patient sitting up in bed. Appears comfortable. Alert and oriented 3. SKIN: Warm and dry. HEAD: Normocephalic. EYES: No scleral icterus. No injection or drainage. NECK: Supple, trachea midline. No JVD or lymphadenopathy. CARDIOVASCULAR: Regular rate and rhythm without murmurs, gallops, or rubs. RESPIRATORY: Breath sounds equal bilaterally. No accessory muscle use. GASTROINTESTINAL: Abdomen soft, non-tender, nondistended. MUSCULOSKELETAL: No cyanosis, or edema. Bilateral hands dressed. Peripheral perfusion intact.no acute changes. BACK: Nontender without obvious deformity. No CVA tenderness. Pt update on day of discharge patient says he feels well. Wishes to go home. Hospital Course Patient underwent ORIF of distal radial fracture by orthopedics, with surgical attention to both hands. Please see report.. Patient did have mild hypokalemia which was replaced during admission. Patient was advised to use laxatives as outpatient as necessary for constipation. He'll need follow-up with orthopedics. For problem-based summary from most recent progress note, please see below. //Postoperative ORIF distal radial fracture with joint involvement. -Bilateral hands injured. -Following fall backwards after box jump. No other injuries. -Appreciate surgical assistance. Postoperative management as per surgical service - And coagulation as per surgical service Pain management as per surgical service Await return of bowel function. Hypokalemia. Acute. Mild. Replaced. Hypertension. Blood pressure acceptable. Continue candesartan. Continue hydrochlorothiazide. Continue to monitor blood pressure. Possible acute kidney injury. Creatinine 1.7 on admission. Improving. Continue to monitor. Prophylaxis. As per surgical service. Pt Condition on Discharge: Good Discharge Disposition: Discharge Home Discharge Time: <= 30 minutes Discharge Instructions DIET: Follow Instructions for: Heart Healthy Diet Activities you can perform: Regular-No Restrictions, See Additionl Instruction Activities to Avoid: Driving Other Activity Instructions: Avoid Driving until cleared by orthopedics. Follow up Referrals: Orthopedics - 2 Weeks with Pavel Ramon MD PCP Follow-up - 1 Week New Medications: Hydrocodone-Acetaminophen (Addison) 10-325 Mg Tab 1-2 TAB PO Q4H PRN PAIN #60 Ref 0 TAB Continued Medications: Alprazolam (Alprazolam) 2 Mg Tab 2 MG PO HS PRN ANXIETY Ref 0 TAB Candesartan (Candesartan) 4 Mg Tab 4 MG PO DAILY Blood Pressure Management #30 Ref 0 TAB Hydrochlorothiazide (Hydrochlorothiazide) 25 Mg Tab 25 MG PO DAILY #30 Ref 0 TAB Chauncey Bourgeois MD May 23, 2016 17:22
== END 2016-05-08 16:28 | disposition home or self-care (01) | DRG 511 ==
LOC: NEPA 19:03 → NEDA 21:01 → N06B 22:44
PROVIDERS: ADMIT Internal Medicine; ATTEND Internal Medicine
PROC: 0PSH04Z Reposition Right Radius with Internal Fixation Device, Open Approach (ICD-10-PCS; principal; 2016-05-07 12:50)
PROC: 01N50ZZ Release Median Nerve, Open Approach (ICD-10-PCS; 2016-05-07 12:50)
DX: S52.571A Other intraarticular fracture of lower end of right radius, initial encounter for closed fracture (principal); N17.9 Acute kidney failure, unspecified; S62.002A Unspecified fracture of navicular [scaphoid] bone of left wrist, initial encounter for closed fracture; G56.01 Carpal tunnel syndrome, right upper limb; I10 Essential (primary) hypertension; E87.6 Hypokalemia; E86.0 Dehydration; F41.9 Anxiety disorder, unspecified; Y92.9 Unspecified place or not applicable; W19.XXXA Unspecified fall, initial encounter
CPT/HCPCS: 73100; 73110; 73120; 76000; 80048; 80053; 85025; 85610; 85730; 93005; 94150; 96374; 96375; C1713; J0131; J0690; J1170; J1580; J2270; J2405; J3010; J3370; J7030; L3808